=== PATIENT | female | born 2000 | race Caucasian/White ===

== ENCOUNTER 2020-08-17 08:19 | Emergency (ER) | payer OTHER ==
[~2020-08-17] VITALS: Ht 172.7 cm; Wt 49.9 kg
[2020-08-17 08:21] VITALS: BP 120/65
--- NOTE | 2020-08-17 08:26 | NUR ---
PT AMBULATED TO ER BED 11 WITH A STEADY GAIT.
--- NOTE | 2020-08-17 08:30 | NUR ---
Dr. Roman at pt bedside for further evaluation.
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
--- NOTE | 2020-08-17 08:33 | NUR ---
PT TAKEN TO RAD VIA W/C.
[2020-08-17] MEDS ORDERED: IBUPROFEN 600 MG TAB PO ONE (08:35)
--- NOTE | 2020-08-17 08:42 | NUR ---
Pt brought back to ER bed 11 via W/C.
[2020-08-17 09:32] VITALS: BP 118/61
--- NOTE | 2020-08-17 09:32 | NUR ---
Patient discharged with v/s stable. Written and verbal after care instructions given and explained. Patient verbalized understanding. Ambulatory with steady gait. All questions addressed prior to discharge. Advised to follow up with PMD.
== END 2020-08-17 09:32 | disposition home or self-care (01) ==
LOC: MED 08:19
DX: S69.92XD Unspecified injury of left wrist, hand and finger(s), subsequent encounter (principal); W22.8XXD Striking against or struck by other objects, subsequent encounter
CPT/HCPCS: 73130; 99283